=== PATIENT | female | born 1985 | race Caucasian/White ===

== ENCOUNTER 2017-06-15 10:02 | Inpatient (IN) | payer BC ==
[2017-06-15] MEDS ORDERED: Sodium Chloride 0.9% 10 ML Syringe FLUSH PRN ×2 (10:33→17:18)
[2017-06-15] MEDS ORDERED: Acetaminophen 325 MG Tab PO PRN ×2 (10:33→17:18)
[2017-06-15] MEDS ORDERED: Ondansetron 4 MG/2 ML SDV IV PRN (10:33)
[2017-06-15] MEDS ORDERED: Carboprost Tromethamine 250 MCG/1 ML Amp IM PRN (10:33)
[2017-06-15] MEDS ORDERED: Lidocaine 1% 30 ML SDV INJECT PRN (10:33)
[2017-06-15] MEDS ORDERED: Misoprostol 400 MCG (4 X 100 MCG TAB) RECTAL PRN (10:33)
[2017-06-15] MEDS ORDERED: Lactated Ringers 500 ML IV ONE (10:33)
[2017-06-15] MEDS ORDERED: Methylergonovine 0.2 MG/1 ML Amp IM PRN (10:33)
[2017-06-15] MEDS ORDERED: Oxytocin/Normal Saline 30 UNIT/500 ML BAG IV SCH (10:45)
[2017-06-15] MEDS ORDERED: Lactated Ringers 1,000 ML IV SCH (10:45)
--- NOTE | 2017-06-15 10:51 | PCM.LDHP ---
L&D History of Present Illness - General Date of Service: 06/15/17 Admit Problem/Dx: Patient Status Order with Admit Dx/Problem 06/15/17 10:33 Patient Status [ADT] Routine Admission Diagnosis/Problem Admission Diagnosis/Problem Labor without complication 06/15/17 10:43 32yo @ 38w4d leaking fluid and onset contractions GDM--diet controlled blood type A+ GBS negative Rubella immune Source of Information: Patient, Family, Old Records History Limitations: Reports: No Limitations - History of Present Illness Timing/Duration: Reports: intermittent, unsure Location, : Reports: Uterus Quality: Reports: Pressure Severity: Mild Associated Symptoms: Reports: vaginal discharge, vaginal fluid, mild amount, moderate amount - Related Data Allergies/Adverse Reactions: Allergies Allergy/AdvReac Type Severity Reaction Status Date / Time No Known Allergies Allergy Verified 05/31/17 15:34 Home Medications: Home Meds Calcium Carbonate [Tums] 500 mg PO Q2HR PRN 05/31/17 [History] Pnv No.122/Iron/Folic Acid [ Multi Tablet] 1 tab PO DAILY 05/31/17 [ History] Past Medical History HEENT History: Reports: Impaired Vision, Other (See Below) (hx strabismus-- surgery X 2) Other HEENT History: 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 Cardiovascular History: Reports: None Respiratory History: Reports: None Gastrointestinal History: Reports: None Genitourinary History: Reports: None COW WASHER History: Reports: : 4 Para: 3 LMP (Approximate): Other (See Below) (06-25-17, exact date) Musculoskeletal History: Reports: None Neurological History: Reports: None Psychiatric History: Reports: None Endocrine/Metabolic History: Reports: Diabetes, Gestational Hematologic History: Reports: Anemia Immunologic History: Reports: None Oncologic (Cancer) History: Reports: None Dermatologic History: Reports: None - Infectious Disease History Infectious Disease History: Reports: None - Past Surgical History Head Surgeries/Procedures: Reports: None Social & Family History - Family History Family Medical History: Noncontributory Oncologic: Reports: Breast (paternal aunt) - Tobacco Use Smoking Status *Q: Former Smoker Years of Tobacco use: 10 Used Tobacco, but Quit: Yes Month Tobacco Last Used: 05 Second Hand Smoke Exposure: No - Caffeine Use Caffeine Use: Reports: Soda - Alcohol Use Days Per Week of Alcohol Use: 1 (not while preg) Number of Drinks Per Day: 1 Total Drinks Per Week: 1 Alcohol Use Comment: not while - Recreational Drug Use Recreational Drug Use: No - Living Situation & Occupation Living situation: Reports: Single, with Significant Other (has three children, lives with Martin Moreland (AJ) She had one daughter Julia and one son Tyrese prior to their first child together (son Humberto)) H&P Review of Systems - Review of Systems: Review Of Systems: See Below HEENT: Reports: No Symptoms Pulmonary: Reports: No Symptoms Cardiovascular: Reports: No Symptoms Gastrointestinal: Reports: No Symptoms Genitourinary: Reports: Other (as per HPI) Musculoskeletal: Reports: No Symptoms Skin: Reports: No Symptoms Psychiatric: Reports: No Symptoms Neurological: Reports: No Symptoms Hematologic/Lymphatic: Reports: No Symptoms Immunologic: Reports: No Symptoms L&D Exam - Exam Exam: See Below - Vital Signs Vital Signs: as noted Weight: 236 lb - OB Specific Contraction Intensity: irregular Movement: Active Heart Tones: Present Heart Tones per Min: 140 Heart Rate (FHR) Variability: Moderate (6-25 bmp) Presentation: Left Occiput Anterior (MIKE) - Torrez Score Torrez Score Cervix Position: Midposition Torrez Score Consistency: Soft Torrez Score Effacement: 51-70% Torrez Score Dilation: > 5 cm Torrez Score 's Station: -1 ,0 Torrez Score Total: 10 - Exam General: Alert, Oriented HEENT: PERRLA, Conjunctiva Clear, EACs Clear, EOMI, Hearing Intact, Mucosa Moist & [place], Nares Patent, Normal Nasal Septum, Posterior Pharynx Clear, TMs Clear Neck: Supple, Trachea Midline Lungs: Clear to Auscultation, Normal Respiratory Effort Cardiovascular: Regular Rate, Regular Rhythm GI/Abdominal Exam: Normal Bowel Sounds, Soft, Non-Tender, No Organomegaly, No Distention, No Abnormal Bruit, No Mass, Pelvis Stable, Distended (gravid, cephalic by Wily's) Rectal Exam: Normal Exam (external only), Deferred Genitourinary: Normal external exam, Normal bimanual exam, Normal speculum exam , Cervical dilitation, Cervical discharge, Cervical fluid, Enlarged uterus, Vaginal discharge Back Exam: Normal Inspection Extremities: Normal Inspection, Normal Range of Motion, Non-Tender, Pedal Edema (trace edema) Skin: Warm, Dry, Intact Neurological: Normal Gait, Normal Speech, Normal Tone Psychiatric: Alert, Normal Affect, Normal Mood - Problem List (1) Blood type A+ SNOMED Code(s): 671415540 ICD Code: Z67.10 - TYPE A BLOOD, RH POSITIVE Status: Acute Current Visit : No (2) Group B Streptococcus not isolated SNOMED Code(s): 957746669 ICD Code: [id number] - Status: Acute Current Visit: No (3) Normal SNOMED Code(s): 25463810 ICD Code: Z34.90 - ENCNTR FOR SUPRVSN OF NORMAL , UNSP, UNSP TRIMESTER Status: Acute Current Visit: No (4) Rubella immune SNOMED Code(s): 524439355 ICD Code: Z78.9 - OTHER SPECIFIED HEALTH STATUS Status: Acute Current Visit: No (5) Rupture of membranes SNOMED Code(s): 43119691 ICD Code: OFU1555 - Status: Acute Current Visit: No (6) Spontaneous rupture of membranes SNOMED Code(s): 932827178 ICD Code: [id number] - Status: Acute Current Visit: No Problem List Initiated/Reviewed/Updated: Yes Orders Last 24hrs: Active Orders 24 hr Category Date Time Status Patient Status [ADT] Routine ADT 06/15/17 10:33 Ordered Blood Glucose Check, Bedside [RC] PRN Care 06/15/17 10:39 Ordered Communication Order [RC] ASDIRECTED Care 06/15/17 10:33 Ordered Heart Tones [RC] PER UNIT ROUTINE Care 06/15/17 10:33 Ordered Notify Provider Vital Signs OB [RC] ASDIRECTED Care 06/15/17 10:33 Ordered Notify Provider [RC] PRN Care 06/15/17 10:33 Ordered Pump Management, Intrathecal [RC] ASDIRECTED Care 06/15/17 10:35 Ordered Up ad Francisca [RC] ASDIRECTED Care 06/15/17 10:33 Ordered Vital Signs [RC] PER UNIT ROUTINE Care 06/15/17 10:33 Ordered Regular Diet [DIET] Diet 06/15/17 Lunch Ordered CBC W/O DIFF,HEMOGRAM [HEME] Routine Lab 06/15/17 10:33 Ordered Acetaminophen [Tylenol] Med 06/15/17 10:33 Ordered 650 mg PO Q4H PRN Carboprost Tromethamine [Hemabate DS] Med 06/15/17 10:33 Ordered 250 mcg IM ASDIRECTED PRN Lactated Ringers @ 125 MLS/HR(1000ml) Med 06/15/17 10:45 Ordered Lactated Ringers [Ringers, Lactated] 1,000 ml IV ASDIRECTED Lactated Ringers [Ringers, Lactated] 500 ml Med 06/15/17 10:33 Ordered IV .BOLUS Lidocaine 1% [Xylocaine-MPF 1%] Med 06/15/17 10:33 Ordered 30 ml INJECT ASDIRECTED PRN Methylergonovine [Methergine] Med 06/15/17 10:33 Ordered 0.2 mg IM ASDIRECTED PRN Misoprostol [Cytotec] Med 06/15/17 10:33 Ordered 800 mcg RECTAL ASDIRECTED PRN Ondansetron [Zofran] Med 06/15/17 10:33 Ordered 4 mg IV Q4H PRN Oxytocin 30 Units in NS @ 2 MUNITS/MIN(500ml) Med 06/15/17 10:45 Ordered Oxytocin/Normal Saline [Pitocin in NS 30 UNIT/500 ML] 30 unit in 500 ml IV TITRATE Sodium Chloride 0.9% [Saline Flush] Med 06/15/17 10:33 Ordered 10 ml FLUSH ASDIRECTED PRN Saline Lock Insert [OM.PC] Routine Oth 06/15/17 10:33 Ordered Resuscitation Status Routine Resus Stat 06/15/17 10:33 Ordered Medication Orders Acetaminophen (Tylenol) 650 mg PO Q4H PRN PRN Reason: Pain (Mild 1-3) and fever Carboprost Tromethamine (Hemabate Ds) 250 mcg IM ASDIRECTED PRN PRN Reason: HEMORRHAGE Lactated Ringer's (Ringers, Lactated) 500 mls @ 500 mls/hr IV .BOLUS ONE Stop: 06/15/17 11:32 Lactated Ringer's (Ringers, Lactated) 1,000 mls @ 125 mls/hr IV ASDIRECTED HIRA Oxytocin/Sodium Chloride (Pitocin In Ns 30 Unit/500 Ml) 30 unit in 500 mls @ 2 mls/hr IV TITRATE HIRA; 2 MUNITS/MIN PRN Reason: Protocol Lidocaine HCl (Xylocaine-Mpf 1%) 30 ml INJECT ASDIRECTED PRN PRN Reason: Perineal Repair Methylergonovine Maleate (Methergine) 0.2 mg IM ASDIRECTED PRN PRN Reason: Hemorrhage Misoprostol (Cytotec) 800 mcg RECTAL ASDIRECTED PRN PRN Reason: Hemorrhage Ondansetron HCl (Zofran) 4 mg IV Q4H PRN PRN Reason: Nausea/Vomiting Sodium Chloride (Saline Flush) 10 ml FLUSH ASDIRECTED PRN PRN Reason: Keep Vein Open Assessment/Plan Comment:: Assessment: 32yo WF @ 38w4d GDM--well controlled with diet leaking fluid and onset contractions/labor Blood type A+ rubella immune GBS negative. plans to breastfeed Plan: admit with routine orders and cares. labs drawn--CBC glucose check WNL @ 80 will check Q4 and prn anticipate this afternoon. All questions answered Pt and SO appear satisfied with plan. hmb
[2017-06-15] MEDS ORDERED: Docusate Sodium 100 MG Cap PO PRN (17:18)
[2017-06-15] MEDS ORDERED: Benzocaine/Menthol 20%-0.5% Spray 56 GM Canister TOP PRN (17:18)
[2017-06-15] MEDS ORDERED: Simethicone 80 MG Tab.Chew PO PRN (17:18)
--- NOTE | 2017-06-15 17:33 | PCM.DEL ---
L & D Note - General Info Date of Service: 06/15/17 Mother's Due Date: 06/25/17 - Delivery Note Labor: Spontaneous, Augmented by ARM Delivery Outcome: Livebirth Delivery Method: Spontaneous Vaginal Delivery-Single Presentation: Left Occiput Anterior (MIKE) Nuchal Cord: None Prep: Povidone-Iodine (Betadine Laceration: None Placenta: Intact, Spontaneous Cord: 3 Vessels Estimated Blood Loss: 250 [place]: Bulb Syringe, Stimulated, Warmed, [place] Used Provider: Lissette Solo Score 1 min: 8 Score 5 min: 9 Second Stage Interventions: Reports: Second Nurse Assessed Progress of Descent, Second Nurse Reviewed Contraction Pattern, Second Nurse Reviewed Heart Tones, Encouragement Given, Laboring Down, Pushing, Feet in Foot Rests, Pushing , Knee Chest Position, Pushing, Right Side Delivery Comments (Free Text/Narrative):: Patient presented to L and D at 10:08 and was 6+ cm FHR was reassuring in 130s The patient rested and progressed to complete in just over 2 hours Patient pushed well and decent progressed quickly Patient delivered at 12:48 Completed vaginal delivery with Braydon Manjarrez, MS4 OA/MKIE presentation Thick 3VC doubly clammed and cut, and baby placed on mom after Dr. Carson performed a quick exam Thick 3VC noted and cord blood sample obtained Cord avulsed with gentle pressure/traction Placenta delivered without issue EBL 250 ml - General Info Date of Service: 06/15/17 Admission Dx/Problem (Free Text): Patient Status Order with Admit Dx/Problem 06/15/17 10:33 Patient Status [ADT] Routine Admission Diagnosis/Problem Admission Diagnosis/Problem Labor without complication 06/15/17 10:43 32yo @ 38w4d leaking fluid and onset contractions GDM--diet controlled blood type A+ GBS negative Rubella immune Functional Status: Reports: Pain Controlled - Review of Systems General: Denies: Fever, Weakness, Fatigue HEENT: Reports: No Symptoms Pulmonary: Reports: No Symptoms Cardiovascular: Reports: No Symptoms Gastrointestinal: Reports: Other ( with labor pains) Genitourinary: Denies: Dysuria, Frequency, Burning Skin: Denies: Cyanosis, Jaundice, Pallor Neurological: Denies: Confusion, Dizziness, Headache - Patient Data Vitals - Most Recent: Last Vital Signs Temp 98.4 F 06/15/17 10:55 Pulse 83 06/15/17 10:55 Resp 16 06/15/17 10:08 BP 122/77 06/15/17 10:55 Pulse Ox Weight - Most Recent: 239 lb Lab Results Last 24 Hours: Laboratory Results - last 24 hr 06/15/17 06/15/17 06/15/17 Range/Units 10:30 10:47 13:30 WBC 8.8 (5.0-10.0) 10^3/uL RBC 4.26 (4.2-5.4) 10^6/uL Hgb 11.4 L (12.0-16.0) g/dL Hct 35.5 L (37.0-47.0) % MCV 83.3 (80-100) fL MCH 26.8 L (27.0-34.0) pg MCHC 32.1 L (33.0-35.0) g/dL Plt Count 138 L (150-450) 10^3/uL POC Glucose 80 85 (70-105) mg/dl Med Orders - Current: Current Medications Acetaminophen (Tylenol) 650 mg PO Q4H PRN PRN Reason: Pain (Mild 1-3) and fever Acetaminophen (Tylenol) 650 mg PO Q6H PRN PRN Reason: mild pain or fever Benzocaine/Menthol (Dermoplast Pain Relief [place]) 0 gm TOP Q4H PRN PRN Reason: Perineal comfort measures Carboprost Tromethamine (Hemabate Ds) 250 mcg IM ASDIRECTED PRN PRN Reason: HEMORRHAGE Docusate Sodium (Colace) 100 mg PO BID PRN PRN Reason: Constipation Lactated Ringer's (Ringers, Lactated) 1,000 mls @ 125 mls/hr IV ASDIRECTED HIRA Last Admin: 06/15/17 10:30 Dose: 125 mls/hr Oxytocin/Sodium Chloride (Pitocin In Ns 30 Unit/500 Ml) 30 unit in 500 mls @ 2 mls/hr IV TITRATE HIRA; 2 MUNITS/MIN PRN Reason: Protocol Last Titration: 06/15/17 16:00 Dose: Infused Ibuprofen (Motrin) 800 mg PO Q8H PRN PRN Reason: Mild Pain or Fever Lidocaine HCl (Xylocaine-Mpf 1%) 30 ml INJECT ASDIRECTED PRN PRN Reason: Perineal Repair Methylergonovine Maleate (Methergine) 0.2 mg IM ASDIRECTED PRN PRN Reason: Hemorrhage Misoprostol (Cytotec) 800 mcg RECTAL ASDIRECTED PRN PRN Reason: Hemorrhage Ondansetron HCl (Zofran) 4 mg IV Q4H PRN PRN Reason: Nausea/Vomiting Last Admin: 06/15/17 12:41 Dose: 4 mg Prenat Multivit/[place]/Iron/Folic Ac ( Plus Iron) 1 each PO DAILY HIRA Simethicone (Simethicone) 80 mg PO Q4H PRN PRN Reason: Gas Sodium Chloride (Saline Flush) 10 ml FLUSH ASDIRECTED PRN PRN Reason: Keep Vein Open Sodium Chloride (Saline Flush) 10 ml FLUSH ASDIRECTED PRN PRN Reason: Keep Vein Open Discontinued Medications Lactated Ringer's (Ringers, Lactated) 500 mls @ 500 mls/hr IV .BOLUS ONE Stop: 06/15/17 11:32 Last Admin: 06/15/17 16:20 Dose: Not Given - Exam General: Alert, Oriented HEENT: Pupils Reactive, Mucous Membr. Moist/[place] Neck: Trachea Midline Lungs: Normal Respiratory Effort Cardiovascular: Regular Rate GI/Abdominal Exam: Other ( ) (Female) Exam: Normal External Exam Back Exam: Full Range of Motion Extremities: Normal Inspection, Normal Range of Motion Skin: Warm, Dry, Intact Neurological: No New Focal Deficit Psy/Mental Status: Alert, Normal Affect, Normal Mood - Problem List & Annotations (1) Blood type A+ SNOMED Code(s): 085497165 Code(s): Z67.10 - TYPE A BLOOD, RH POSITIVE Status: Acute Current Visit: No (2) Group B Streptococcus not isolated SNOMED Code(s): 276007669 Code(s): GNV9030 - Status: Acute Current Visit: No (3) Mother currently breast-feeding SNOMED Code(s): 077233843 Code(s): QBA1833 - Status: Acute Current Visit: No (4) Normal vaginal delivery SNOMED Code(s): 92241075 Code(s): O80 - ENCOUNTER FOR FULL-TERM UNCOMPLICATED DELIVERY Status: Acute Current Visit: No (5) Rubella immune SNOMED Code(s): 959999828 Code(s): Z78.9 - OTHER SPECIFIED HEALTH STATUS Status: Acute Current Visit: No (6) Rupture of membranes SNOMED Code(s): 68131810 Code(s): SZC9348 - Status: Acute Current Visit: No - Problem List Review Problem List Initiated/Reviewed/Updated: Yes - My Orders Last 24 Hours: My Active Orders 06/15/17 17:18 Notify Provider Vital Signs OB [RC] ASDIRECTED Up ad Francisca [RC] ASDIRECTED Vital Signs [RC] PFP Acetaminophen [Tylenol] 650 mg PO Q6H PRN Benzocaine/Menthol [Dermoplast Pain Relief [place]] See Dose Instructions TOP Q4H PRN Docusate Sodium [Colace] 100 mg PO BID PRN Ibuprofen [Motrin] 800 mg PO Q8H PRN Simethicone 80 mg PO Q4H PRN Sodium Chloride 0.9% [Saline Flush] 10 ml FLUSH ASDIRECTED PRN Assess Lochia [WOMSER] Per Unit Routine Assess Uterine Involution [WOMSER] Per Unit Routine Breast Pump [WOMSER] Per Unit Routine Ice Therapy [OM.PC] Per Unit Routine Perineal Care [OM.PC] Per Unit Routine Saline Lock Insert [OM.PC] Urgent Sitz Bath [OM.PC] Per Unit Routine 06/16/17 09:00 Vit with Ca/FA/Iron [ Plus Iron] 1 each PO DAILY 06/17/17 05:11 CBC W/O DIFF,HEMOGRAM [HEME] AM 06/18/17 05:11 CBC W/O DIFF,HEMOGRAM [HEME] AM - Assessment Assessment:: Assessment: 32yo WF G4 now P4004 38w4d per LMP and verified by U/S GDM--well controlled with diet delivery -- precipitous on 06/15/17 @ 12:48 JAMES female 8 & 9 7lb9oz -- 3435 after AROM Blood type A+ rubella immune GBS negative. plans to breastfeed - Plan Plan:: Plan: routine and post-op care. check CBC in 24+ hours continue to monitor BP, etc. for pre-eclampsia All questions answered and family updated.
[2017-06-15] MEDS: Ibuprofen 800 MG Tab PO PRN (21:32)
[2017-06-16] MEDS: Ibuprofen 800 MG Tab PO PRN (08:23)
[2017-06-16] MEDS ORDERED: Prenatal Multivitamin with Calcium/Folic Acid/Iron Tab PO SCH (09:00)
--- NOTE | 2017-06-16 12:55 | PCM.DCSUM1 ---
Discharge Summary - Hospital Course Free Text/Narrative:: Gracie Nieto is delightful 32yo G4 now P4 @ 38w4d viable female time of : 06-15-17 @ 12:48 presented with cxns and leaking fluid diet-controlled gestational DM APGARs 8 & 9 see delivery note for details HPI Initial Comments: see delivery note. course uneventful Brief History: Gracie had G4 now P4 and uneventful course. she is voiding, ambulating and eating well, and her VS are stable, afebrile. She is requesting discharge home on PPD #1. She is without incident. hmb - Discharge Data Discharge Date: 06/16/17 Discharge Disposition: Home, Self-Care 01 Condition: Good - Discharge Diagnosis/Problem(s) (1) Blood type A+ SNOMED Code(s): 283462027 ICD Code: Z67.10 - TYPE A BLOOD, RH POSITIVE Status: Acute (2) Group B Streptococcus not isolated SNOMED Code(s): 531289980 ICD Code: JAO1035 - Status: Acute (3) Normal SNOMED Code(s): 45137972 ICD Code: Z34.90 - ENCNTR FOR SUPRVSN OF NORMAL , UNSP, UNSP TRIMESTER Status: Acute (4) Rubella immune SNOMED Code(s): 298079341 ICD Code: Z78.9 - OTHER SPECIFIED HEALTH STATUS Status: Acute (5) Rupture of membranes SNOMED Code(s): 78067964 ICD Code: [id number] - Status: Acute (6) Spontaneous rupture of membranes SNOMED Code(s): 045023089 ICD Code: SMB8201 - Status: Acute - Patient Summary/Data Operative Procedure(s) Performed: Complications: none Consults: NA Hospital Course: uneventful - Patient Instructions Diet: Usual Diet as Tolerated Activity: As Tolerated Driving: May Drive Today Showering/Bathing: May Shower - Discharge Plan Home Medications: Home Meds Calcium Carbonate [Tums] 500 mg PO Q2HR PRN 05/31/17 [History] Pnv No.122/Iron/Folic Acid [ Multi Tablet] 1 tab PO DAILY 05/31/17 [ History] Patient Handouts: Home Care Instructions for Mom - Discharge Summary/Plan Comment DC Time >30 min.: No Discharge Summary/Plan Comment: follow up for 6 week check, and sooner prn. usual orders and instructions. hmb - Patient Data Vitals - Most Recent: Last Vital Signs Temp 98.8 F 06/15/17 21:44 Pulse 71 06/15/17 21:44 Resp 16 06/15/17 21:44 BP 122/59 L 06/15/17 21:44 Pulse Ox Weight - Most Recent: 239 lb I&O - Last 24 hours: Intake & Output 06/15/17 06/16/17 06/16/17 22:59 06:59 14:59 Intake Total 1500 Balance 1500 Lab Results - Last 24 hrs: Laboratory Results - last 24 hr 06/15/17 Range/Units 13:30 POC Glucose 85 (70-105) mg/dl Med Orders - Current: Current Medications Acetaminophen (Tylenol) 650 mg PO Q6H PRN PRN Reason: mild pain or fever Benzocaine/Menthol (Dermoplast Pain Relief [place]) 0 gm TOP Q4H PRN PRN Reason: Perineal comfort measures Carboprost Tromethamine (Hemabate Ds) 250 mcg IM ASDIRECTED PRN PRN Reason: HEMORRHAGE Docusate Sodium (Colace) 100 mg PO BID PRN PRN Reason: Constipation Last Admin: 06/16/17 08:24 Dose: 100 mg Lactated Ringer's (Ringers, Lactated) 1,000 mls @ 125 mls/hr IV ASDIRECTED HIRA Last Admin: 06/15/17 10:30 Dose: 125 mls/hr Oxytocin/Sodium Chloride (Pitocin In Ns 30 Unit/500 Ml) 30 unit in 500 mls @ 2 mls/hr IV TITRATE HIRA; 2 MUNITS/MIN PRN Reason: Protocol Last Titration: 06/15/17 16:00 Dose: Infused Ibuprofen (Motrin) 800 mg PO Q8H PRN PRN Reason: Mild Pain or Fever Last Admin: 06/16/17 08:23 Dose: 800 mg Lidocaine HCl (Xylocaine-Mpf 1%) 30 ml INJECT ASDIRECTED PRN PRN Reason: Perineal Repair Methylergonovine Maleate (Methergine) 0.2 mg IM ASDIRECTED PRN PRN Reason: Hemorrhage Misoprostol (Cytotec) 800 mcg RECTAL ASDIRECTED PRN PRN Reason: Hemorrhage Ondansetron HCl (Zofran) 4 mg IV Q4H PRN PRN Reason: Nausea/Vomiting Last Admin: 06/15/17 12:41 Dose: 4 mg Prenat Multivit/Tag Clerk/Iron/Folic Ac ( Plus Iron) 1 each PO DAILY HIRA Last Admin: 06/16/17 08:23 Dose: 1 each Simethicone (Simethicone) 80 mg PO Q4H PRN PRN Reason: Gas Sodium Chloride (Saline Flush) 10 ml FLUSH ASDIRECTED PRN PRN Reason: Keep Vein Open Discontinued Medications Acetaminophen (Tylenol) 650 mg PO Q4H PRN PRN Reason: Pain (Mild 1-3) and fever Lactated Ringer's (Ringers, Lactated) 500 mls @ 500 mls/hr IV .BOLUS ONE Stop: 06/15/17 11:32 Last Admin: 06/15/17 16:20 Dose: Not Given Sodium Chloride (Saline Flush) 10 ml FLUSH ASDIRECTED PRN PRN Reason: Keep Vein Open *Q Meaningful Use (DIS) - VTE *Q VTE Criteria *Q: - Stroke *Q Stroke Criteria *Q: - AMI *Q AMI Criteria *Q:
[2017-06-16 13:00] VITALS: BP 121/67
== END 2017-06-16 16:15 | disposition home or self-care (01) | DRG 560 ==
LOC: DL.OBCHECK 10:02 → DL.OB 11:23 → UNDOADMOB 11:23 → OBSVTOIN 12:48 → INTOOBSV 12:48 → UNDOADMOB 17:41 → DL.MS 17:41 → OBSVTOIN 17:41 → INTOOBSV 17:41 → OBSVTOIN 21:40 → DL.OB 21:40
PROVIDERS: ADMIT Family Medicine; ATTEND Family Medicine
PROC: 10E0XZZ Delivery of Products of Conception, External Approach (ICD-10-PCS; principal; 2017-06-15)
PROC: 4A1HXFZ Monitoring of Products of Conception, Cardiac Rhythm, External Approach (ICD-10-PCS; 2017-06-15)
PROC: 10907ZC Drainage of Amniotic Fluid, Therapeutic from Products of Conception, Via Natural or Artificial Opening (ICD-10-PCS; 2017-06-15)
DX: O24.420 Gestational diabetes mellitus in childbirth, diet controlled (principal); O42.02 Full-term premature rupture of membranes, onset of labor within 24 hours of rupture; O62.3 Precipitate labor; Z3A.39 39 weeks gestation of pregnancy; Z37.0 Single live birth; Z67.10 Type A blood, Rh positive
CPT/HCPCS: 36415; 82962; 85027; A9270-GY; J2405; J2590; J7120